=== PATIENT | male | born 1965 | race Caucasian/White ===

== ENCOUNTER → 2024-05-08 | Outpatient (CLI) | payer BC, SELFPAY ==
--- NOTE | 2024-05-08 09:15 | RAD_ITS ---
STUDY: X-RAY - ESOPHAGUS (BARIUM SWALLOW) WITH FLUOROSCOPY REASON FOR EXAM: Male, 58 years old. DYSPHAGIA TECHNIQUE: 16 view(s) of the esophagus were obtained following swallowing of barium. FLUOROSCOPY TIME (if supplied): (34 seconds) minutes/seconds. 7.07 mGy. COMPARISON: None. FINDINGS: There is no demonstrated esophageal foreign body. There is circumferential narrowing over a 6.6 mm distance of the distal esophagus at the level of the gastroesophageal junction. The patient ingested a 12 mm tablet of barium. The tablet is trapped at the gastroesophageal junction. Correlation with endoscopy is recommended. Normal visualized aortic arch and descending thoracic aorta. Normal visualized pulmonary parenchyma. Normal visualized osseous structures of the thorax. RAD/Esophagus Dual Contrast IMPRESSION: Circumferential narrowing of the distal esophagus over a 6.6 mm length. The ingested 12 mm tablet of barium is trapped at that site. Correlation with endoscopy recommended. Electronically Signed: Valente Dennis MD at 9:57 EDT ,
== END | disposition home or self-care (01) ==
PROVIDERS: Referring Provider Internal Medicine Gastroenterology; Visit Provider Internal Medicine Gastroenterology
DX: R13.10 Dysphagia, unspecified (principal)
CPT/HCPCS: 74221